=== PATIENT | male | born 1945 | race Caucasian/White ===

== ENCOUNTER 2016-10-15 14:41 | Inpatient (IN) ==
[2016-10-15] MEDS ORDERED: NITROGLYCERIN SL PRN (14:56)
[2016-10-15] MEDS ORDERED: ASPIRIN PO STA (14:56)
[2016-10-15] MEDS ORDERED: ASPIRIN ONE (15:05)
--- NOTE | 2016-10-15 15:05 | PROVIDER DOCUMENTATION ---
HPI-Chest Pain - General Source: patient - History of Present Illness-CP Location: reports: other (jaw tight) Chest Pain Radiation: reports: jaw Quality of Pain: reports: aching Severity in ED: mild Onset/Duration: 1 hour ago Timing: still present Context/Activities at Onset: reports: none, rest Modifying Factors: improves with: nothing Associated Symptoms: denies: back pain, diaphoresis, fatigue, fever/chills, headache, nausea Aspirin Treatment Today: 325 mg x 1 Prior Chest Pain/Cardiac Workup: reports: other (cabg) Similar Symptoms Previously?: Yes Recently Seen Here or By Another Healthcare Provider: No <Derrick Mai - Last Filed: 10/15/16 18:10> <Bre Lopez - Last Filed: 10/15/16 18:23> - General Chief Complaint: Palpitations Stated Complaint: HEART RACING Time Seen by Provider: 10/15/16 14:55 Allergies/Adverse Reactions: Patient Allergies Allergy/AdvReac Type Severity Reaction Status Date / Time peanut Allergy ANAPHYLAXIS Verified 10/15/16 15:01 Home Medications: Allopurinol 300 mg PO DAILY 10/15/16 Amlodipine Besylate [Norvasc] 25 mg PO DAILY 10/15/16 Aspirin 81 mg PO DAILY 10/15/16 Escitalopram [Lexapro] 10 mg PO DAILY 10/15/16 Metoprolol Succinate E.r. [Toprol Xl] 10 mg PO DAILY 10/15/16 Vitamin B Complex 1 each PO DAILY 10/15/16 - History of Present Illness-CP Nature of Presenting Problem: 70 yo WM presents with 45 minutes of palpitations with jaw pain. Came in in SVT at 160 and this spontaneously resolved when I was examining him. He has had this several times before but it usually resolves in minutes. Recently ill with diarrhea and vomiting. (Derrick Mai) Review of Systems - Adult - REVIEW OF SYSTEMS - ADULT Constitutional: reports: no symptoms reported Eyes: reports: no symptoms reported Ears, Nose, Mouth & Throat: reports: no symptoms reported Cardiovascular: reports: see HPI, palpitations Respiratory: reports: see HPI Gastrointestinal: reports: no symptoms reported, see HPI Genitourinary: reports: no symptoms reported Musculoskeletal: reports: no symptoms reported Integumentary: reports: no symptoms reported Neurological: reports: no symptoms reported Psychiatric: reports: no symptoms reported Endocrine: reports: no symptoms reported Hematologic/Lymphatic: reports: no symptoms reported Allergic/Immunologic: reports: no symptoms reported All Other Systems: Reviewed and Negative <Derrick Mai - Last Filed: 10/15/16 18:10> Past History - Adult - PAST MEDICAL HISTORY-ADULT Review of Records: reports: Old Records Reviewed, Nursing Assessment Review, Medications Reviewed, Social history reviewed & non-contributory. Cardiovascular: reports: cardiac disease, CAD, palpitations Respiratory: reports: denies history Gastrointestinal: reports: denies history Musculoskeletal: reports: denies history Neurological: reports: denies history Psychiatric: reports: denies history <Derrick Mai - Last Filed: 10/15/16 18:10> Physical Exam-General - PHYSICAL EXAM-ADULT Initial Vital Signs Reviewed: Yes - CONSTITUTIONAL General Appearance: appears well, alert - EYES Eyes: PERRL/EOMI - HEAD, EARS, NOSE, MOUTH & THROAT HENMT: normocephalic/atraumatic, moist mucous membranes - NECK Neck: non-tender - RESPIRATORY Respiratory: chest non-tender, lungs clear, normal breath sounds, no pleuratic chest pain, no respiratory distress, no accessory muscle use - CARDIOVASCULAR Cardiovascular: normal peripheral pulses, regular rate, rhythm, no edema, other (svt resolved during exam) - GASTROINTESTINAL (ABDOMEN) Abdominal Exam: non tender, soft - MUSCULOSKELETAL Extremity: no pedal edema, no calf tenderness - SKIN Integumentary: normal color, normal turgor - NEUROLOGIC Neurologic: grossly normal, no motor/sensory deficits - PSYCHIATRIC Psych/Mental Status: normal mood/affect, normal thought content, normal thought process <Derrick Mai - Last Filed: 10/15/16 18:10> Progress - CARDIAC RHYTHM EMS EKG Rhythm Strip Interpretation: Initial EKG was SVT, after conversion sinus with ST depression, last EKG - CONSULTS/PCP/HOSPITALIST Notification #1 *Consult/PCP/Hospitalist*: Aydee Time Discussed: 18:10 Reason/Comments: admission for positive enzymes, wanted cardiology approval first Consult Disposition: other #2 Consult: javed barclay Time Discussed: 18:17 Consult Disposition: Admit <Derrick Mai - Last Filed: 10/15/16 18:10> - EKG 1 Time of EKG reading by physician:: 18:22 EKG Read and Signed by:: Osmin Luna Rate: 79 Rhythm: NSR Traer: normal QRS: normal NE Interval: normal <Bre Lopez - Last Filed: 10/15/16 18:23> - PLAN OF CARE/RESULTS Progress/Plan/Lab Results: Vital Signs Pulse Resp BP Pulse Ox 10/15/16 14:47 82 18 127/68 98 peanut Allergy (Verified 10/15/16 15:01) ANAPHYLAXIS Allopurinol 300 mg PO DAILY 10/15/16 Amlodipine Besylate [Norvasc] 25 mg PO DAILY 10/15/16 Aspirin 81 mg PO DAILY 10/15/16 Escitalopram [Lexapro] 10 mg PO DAILY 10/15/16 Metoprolol Succinate E.r. [Toprol Xl] 10 mg PO DAILY 10/15/16 Vitamin B Complex 1 each PO DAILY 10/15/16 Laboratory 10/15/16 10/15/16 10/15/16 16:57 16:57 15:13 WBC RBC Hgb Hct MCV MCH MCHC RDW Std Deviation Plt Count MPV Neut % (Auto) Lymph % (Auto) [place] % (Auto) Eos % (Auto) Baso % (Auto) Neut # (Auto) Lymph # (Auto) [place] # (Auto) Eos # (Auto) Baso # (Auto) PT INR PTT (Actin FS) D-Dimer Sodium Potassium Chloride Carbon Dioxide Anion Gap BUN Creatinine Estimated GFR/1.73 m2 BUN/Creatinine Ratio Glucose Calculated Osmolality Calcium Magnesium Total Bilirubin AST ALT Alkaline Phosphatase Creatine Kinase 267 H Creatine Kinase Index 5.3 H CK-MB (CK-2) 14.02 H D Troponin T 0.247 H D < 0.010 Ppw-A-Rgizxnrsetd Pept Total Protein Albumin Globulin Albumin/Globulin Ratio 10/15/16 10/15/16 10/15/16 15:13 15:13 15:13 WBC RBC Hgb Hct MCV MCH MCHC RDW Std Deviation Plt Count MPV Neut % (Auto) Lymph % (Auto) [place] % (Auto) Eos % (Auto) Baso % (Auto) Neut # (Auto) Lymph # (Auto) [place] # (Auto) Eos # (Auto) Baso # (Auto) PT 11.4 INR 1.07 PTT (Actin FS) 23.3 D-Dimer 0.43 Sodium Potassium Chloride Carbon Dioxide Anion Gap BUN Creatinine Estimated GFR/1.73 m2 BUN/Creatinine Ratio Glucose Calculated Osmolality Calcium Magnesium Total Bilirubin AST ALT Alkaline Phosphatase Creatine Kinase Creatine Kinase Index CK-MB (CK-2) Troponin T Ias-K-Nnllozbzntb Pept 104 Total Protein Albumin Globulin Albumin/Globulin Ratio 10/15/16 10/15/16 15:13 15:13 WBC 7.70 RBC 4.54 L Hgb 15.2 Hct 42.9 MCV 94.5 MCH 33.5 H MCHC 35.4 RDW Std Deviation 11.5 Plt Count 116 L MPV 9.6 Neut % (Auto) 55.5 Lymph % (Auto) 26.0 Da[place]hin % (Auto) 13.1 H Eos % (Auto) 5.1 Baso % (Auto) 0.3 Neut # (Auto) 4.28 Lymph # (Auto) 2.00 [place]hin # (Auto) 1.01 H Eos # (Auto) 0.39 Baso # (Auto) 0.02 PT INR PTT (Actin FS) D-Dimer Sodium 139 Potassium 3.7 Chloride 99 Carbon Dioxide 19 L Anion Gap 21 BUN 16 Creatinine 1.1 Estimated GFR/1.73 m2 > 60 BUN/Creatinine Ratio 15 Glucose 126 H Calculated Osmolality 280 Calcium 8.7 L Magnesium 1.5 Total Bilirubin 0.67 AST 186 H ALT 116 H Alkaline Phosphatase 76 Creatine Kinase 233 H Creatine Kinase Index 2.0 CK-MB (CK-2) 4.58 Troponin T Ied-X-Kwmdljrhsum Pept Total Protein 6.6 Albumin 3.9 Globulin 2.7 Albumin/Globulin Ratio 1.4 (Derrick Mai) Departure - Departure Time of Disposition Order: 18:17 Certified Medical Emergency: Emergent <Derrick Mai - Last Filed: 10/15/16 18:10> <Bre Lopez - Last Filed: 10/15/16 18:23> - Departure DIAGNOSIS: PSVT (paroxysmal supraventricular tachycardia), Elevated troponin Disposition: ADMITTED INPATIENT 09 Condition: Stable Referrals: Garret Culver MD [Primary Care Provider] - Physician Attestation
--- NOTE | 2016-10-15 15:30 | ED EKG INTERP ---
EKG Interpretation - EKG Time of EKG reading by physician:: 14:48 EKG Read and Signed by:: Derrick Mai EKG Interpretation (*Must complete 3 of following elements*): Abnormal Rate: 182 (left anterior fascicular block; anteroseptal infarct; marked ST abnormality , possible inferolateral subendorcardial injury) Rhythm: supraventricular tachycardia - EKG # 2 Time of EKG reading by physician:: 14:55 EKG Read and Signed by:: Derrick Mai EKG Interpretation (*Must complete 3 of following elements*): Abnormal Rate: 75 (possible left atrial enlargement; left axis deviation; anteroseptal infarct; marked ST abnormality, possible lateral subendocardial injury) Rhythm: sinus rhythm with 1st degree AV block Attestation - Scribe Verification/Attestation Scribe:: Ayleen Garcia Acting as Scribe for:: Derrick Mai Scribe documention review:: This chart was documented by a scribe and accurately reflects the service the provider performed and the decisions made by the provider.
[2016-10-15 15:31] LABS: MANUAL DIFF NEEDED? NO
[2016-10-15 15:36] LABS: BASO% 0.3 % (0.0-0.8); EOS# 0.39 X1000 (0.0-0.7); EOS% 5.1 % (0.0-10.0); HEMATOCRIT 42.9 % (42.0-52.0); HEMOGLOBIN 15.2 g/dL (14.0-18.0); MCH 33.5 PG (27-31); MCHC 35.4 g/dL (33-37); MCV 94.5 FL (81-99); MONO# 1.01 X1000 (0.11-0.59); MONO% 13.1 % (1.7-9.3); MPV 9.6 FL (7.4-10.4); NEUT% 55.5 % (42.2-75.2); PLT 116 X1000 (130-400); RBC 4.54 XMIL (4.7-6.1)
[2016-10-15 15:49] LABS: INR 1.07; PROTIME 11.4 Seconds (9.2-11.7); PTT 23.3 Seconds (22.0-36.0)
[2016-10-15 15:56] LABS: AGAP 21; ALBUMIN 3.9 g/dL (3.5-5.0); ALKALINE PHOSPHATASE 76 U/L (32-122); BUN 16 mg/dL (8-22); CALCIUM 8.7 mg/dL (8.8-10.2); CHLORIDE 99 mmol/L (98-107); CK PROFILE 233 U/L (24-204); COSMO 280; GOT 186 U/L (10-34); GPT 116 U/L (10-44); MAGNESIUM 1.5 mg/dL (1.5-2.7); POTASSIUM 3.7 mmol/L (3.5-5.1); SODIUM 139 mmol/L (136-145); TCO2 19 mmol/L (25-35); TOTAL BILIRUBIN 0.67 mg/dL (0.20-1.00); TOTAL PROTEIN 6.6 g/dL (6.3-8.3)
[2016-10-15 16:13] LABS: CK-MB 4.58 ng/mL (0.0-5.0)
[2016-10-15] MEDS: NS 1,000 ML IV SCH ×2 (16:15→19:40)
[2016-10-15] MEDS ORDERED: NS 1,000 ML IV SCH (16:15)
[2016-10-15 17:47] LABS: CK INDEX 5.3 (0.0-2.5); CK-MB 14.02 ng/mL (0.0-5.0)
[2016-10-15] MEDS ORDERED: HEPARIN IV ONE (18:02)
[2016-10-15] MEDS ORDERED: ASPIRIN PO ONE (18:02)
[2016-10-15] MEDS ORDERED: LOVENOX SUBQ ONE (19:32)
[2016-10-15] MEDS ORDERED: ZOFRAN IV PRN (20:15)
[2016-10-15] MEDS ORDERED: NORCO-7.5 PO PRN (20:15)
[2016-10-15 21:18] LABS: HEMOGLOBIN A1C 5.5 % (4.8-6.0)
--- NOTE | 2016-10-15 21:34 | HISTORY AND PHYSICAL ---
CHIEF COMPLAINT: Palpitations. HISTORY OF PRESENT ILLNESS: Mr. Parish Mathew is a 70 years old male with a past medical history of hypertension, coronary artery disease, coronary artery disease status post CABG 2005 and gout who presented to the emergency department complaining of palpitation, the patient states that this palpitation started in the afternoon and lasted more than 25 minutes. He also states that he has been having this kind of palpitation on and off but they do not last that long, they last about 5-10 minutes. At the moment of the palpitations he did not have nausea, vomiting, chest pain, shortness of breath, dizziness. He did not complain of any symptoms. Apparently in the emergency department he has had SVT at 160 but this spontaneously resolved. At the moment of my physical exam he was a normal sinus rhythm. The emergency department called cardiology and they decided to hospitalize the patient for further treatment. REVIEW OF SYSTEMS: Fourteen points of review of systems were reviewed, all negative except as per as per HPI. PAST MEDICAL HISTORY: Hypertension, coronary artery disease status post CABG in 2005 and gout. PAST SURGICAL HISTORY: CABG in 2005, right heel surgery, bilateral knee and right shoulder arthroscopy and tonsillectomy. FAMILY HISTORY: Father with hypertension and CHF, brother with diabetes and his mom is healthy and alive, she is 96 years. SOCIAL HISTORY: He used to smoke but he stopped smoking in 1981. He is an occasional drinker. No drugs. He is . ALLERGIES: PEANUTS AND PEANUT PRODUCTS. BLOOD TRANSFUSIONS: None. PHYSICAL EXAM: VITAL SIGNS: Pulse 82, respiratory rate 18, blood pressure 127/68, O2 saturation 98 on room air. HEENT: Head normocephalic. No trauma. PERRLA. NECK: Supple. No JVD. No masses. Central trachea. CHEST: Clear to auscultation. No wheezing. No rales. ABDOMEN: Soft, nontender, nondistended. No hepatosplenomegaly. EXTREMITIES: No edema. No clubbing. No cyanosis. NEUROLOGICAL EXAMINATION: Patient is alert and oriented x3. No focal neurological deficits. LABORATORY: Sodium 139, potassium 3.7, chloride 99, bicarbonate 19, BUN 16, creatinine 1.1, glucose 126. Calcium 8.7, AST 186, ALT 116, CK 233, CK-MB 4.5 and one almost 2 hours later 14. Troponin less than 0.01 and close to 2 hours later 0.24. Albumin 3.9. ASSESSMENT AND PLAN: 1.SVT, now on sinus rhythm, will continue to monitor with telemetry in the [facility], Cardiology Department been consulted. 2. Increased troponins. Will monitor. We are going to follow up troponins every 6 hours, since the CK-MB and troponins are mildly elevated we are going to give a dose of Lovenox to this patient. We need to rule out non-ST elevation myocardial infarction. 3. Hypertension stable. I will continue with his home medications. 4. History of coronary artery disease status post coronary artery bypass graft, that was back in 2005, he is not complaining of chest pain but he was complaining of palpitation and neck discomfort. Will monitor. 5. Gout. We will continue with home medications. At this moment this patient is stable. He is not complaining of chest pain, shortness of breath, palpitation. He is going to receive aspirin and 1 dose of Lovenox. We will monitor the troponins and CK-MB, cardiology Department has been consulted. Also we will ask for an echocardiogram, lab work including CBC, CMP and thyroid function, hemoglobin A1c. He will be hospitalized in [facility] with monitoring. DEN
[2016-10-15] MEDS ORDERED: RESTORIL PO ONE (22:10)
[2016-10-15] MEDS: 1/2 NS 1,000 ML IV SCH (22:48)
--- NOTE | 2016-10-15 23:11 | Diag Imaging Result Document ---
PROCEDURE NAME: CHEST-2 VIEWS - 10/15/2016 PA AND LATERAL RADIOGRAPH OF THE CHEST: COMPARISON: None available. FINDINGS: There is a calcified granuloma at the peripheral mid lung zone on the right. Lungs are clear otherwise. There is no definite pleural fluid collection. CABG changes are noted. Cardiac silhouette and central vasculature are unremarkable, otherwise. IMPRESSION: No definite acute pathology.
[2016-10-16] MEDS ORDERED: PRILOSEC PO SCH (07:00)
[2016-10-16 07:41] LABS: MANUAL DIFF NEEDED? NO
[2016-10-16 07:42] LABS: BASO% 0.5 % (0.0-0.8); EOS# 0.41 X1000 (0.0-0.7); EOS% 6.6 % (0.0-10.0); HEMATOCRIT 40.5 % (42.0-52.0); HEMOGLOBIN 14.3 g/dL (14.0-18.0); IMM GRAN# 0.02 X1000 (0.0-0.04); IMM GRAN% 0.3 % (0.0-0.5); LYMPH# 1.62 X1000 (1.2-3.4); LYMPH% 26.2 % (20.5-51.1); MCH 33.3 PG (27-31); MCHC 35.3 g/dL (33-37); MCV 94.4 FL (81-99); MONO# 0.95 X1000 (0.11-0.59); MONO% 15.3 % (1.7-9.3); MPV 9.5 FL (7.4-10.4); NEUT% 51.1 % (42.2-75.2); PLT 112 X1000 (130-400); RBC 4.29 XMIL (4.7-6.1)
[2016-10-16 07:53] LABS: INR 1.12; PROTIME 11.9 Seconds (9.2-11.7); PTT 28.3 Seconds (22.0-36.0)
[2016-10-16 07:59] LABS: AGAP 11; ALBUMIN 3.4 g/dL (3.5-5.0); ALKALINE PHOSPHATASE 55 U/L (32-122); BUN 14 mg/dL (8-22); CALCIUM 8.2 mg/dL (8.8-10.2); CHLORIDE 101 mmol/L (98-107); COSMO 275; GOT 116 U/L (10-34); GPT 85 U/L (10-44); MAGNESIUM 1.7 mg/dL (1.5-2.7); POTASSIUM 4.3 mmol/L (3.5-5.1); SODIUM 137 mmol/L (136-145); TCO2 25 mmol/L (25-35); TOTAL BILIRUBIN 0.78 mg/dL (0.20-1.00); TOTAL PROTEIN 5.7 g/dL (6.3-8.3)
[2016-10-16] MEDS ORDERED: LOVENOX SUBQ SCH (09:00)
[2016-10-16] MEDS ORDERED: TOPROL XL PO SCH ×2 (09:00)
[2016-10-16] MEDS ORDERED: ZYLOPRIM PO SCH (09:00)
[2016-10-16] MEDS ORDERED: VICON-C PO SCH (09:00)
[2016-10-16] MEDS ORDERED: ASPIRIN PO SCH (09:00)
[2016-10-16] MEDS ORDERED: NORVASC PO SCH ×2 (09:00)
[2016-10-16] MEDS ORDERED: LEXAPRO PO SCH (09:00)
--- NOTE | 2016-10-16 10:33 | Diag Imaging Result Document ---
PROCEDURE NAME: CHEST-PORTABLE - 10/16/2016 SINGLE FRONTAL RADIOGRAPH OF THE CHEST: COMPARISON: 10/15/2016. FINDINGS: The lungs remain grossly clear. There are no new consolidations. Cardiac silhouette is stable. IMPRESSION: Stable chest.
[2016-10-16] MEDS ORDERED: LIPITOR PO SCH (11:30)
[2016-10-16 12:21] VITALS: BP 175/78
[2016-10-16] MEDS: 1/2 NS 1,000 ML IV SCH (13:40)
--- NOTE | 2016-10-16 16:39 | CONSULTATION ---
DATE OF CONSULTATION: 10/16/2016 INDICATION FOR THE CONSULTATION: SVT, non-ST elevation LA. HISTORY OF PRESENT ILLNESS: Mr. Mathew is a 70-year-old white male with a past history of hypertension, coronary disease and hyperlipidemia. He normally follows with [facility] and Dr. Hagan. However, he has not seen Dr. Hagan in roughly 7-8 years. He presented yesterday for complaints of palpitations as well as pain radiating up into his jaw. This began while at rest. It persisted for around 25-30 minutes at home before he ultimately presented to the ER where he was found to be in a narrow complex SVT that appeared to be reentrant in etiology. He spontaneously converted. He did have some ST-segment depression. During the remainder the stay he was found to have elevated cardiac enzymes. He did not have any symptoms that he is aware of prior to his bypass but did note that after his bypass was performed he had resolution of significant fatigue and dyspnea. He has had periodic SVT in the interim years that has always terminated on its own. Those episodes would last for around 5-8 minutes. He had never been diagnosed with it but it sounded like he had intermittent palpitations that was consistent with SVT. Over the last 3 days he has had recurrent episodes of this. PAST MEDICAL HISTORY: Significant for. 1. Coronary disease and coronary bypass grafting in 2005. No cardiology followup since 2008. 2. Hypertension. 3. Hyperlipidemia. 4. Gout. SOCIAL HISTORY: Previous smoking but quit in 1981. He is . His is present with him. He uses occasional rare alcohol. No illicit drugs. FAMILY HISTORY: Significant for hypertension, CHF, brother with diabetes. Mom is healthy and alive at 96. REVIEW OF SYSTEMS: A 10-system review of systems is negative except for those things mentioned in HPI. PHYSICAL EXAMINATION: Vital signs: The patient is afebrile. His heart rates are in the 60s to 80s during the course of this visit. His blood pressure is 140/84. General: He is in no acute distress. HEENT: Oropharynx is moist. Normal dentition. His eye examination shows pink conjunctivae. White sclerae. Neck: Examination shows no obvious thyromegaly or thyroid tenderness. Cardiovascular: He sounds to be in a regular rate and rhythm. He has no obvious murmurs. He has no S3 present. He has no lower extremity edema. Chest: Exam is clear bilaterally. He has no increased work of breathing. Abdomen: Soft, nontender, nondistended. He has no obvious organomegaly. Skin Exam: Warm and dry throughout without any rashes. Neurological: He is moving all extremities well. Cranial nerves 2-12 are intact without any sensation deficits. PERTINENT DATA: His EKG on presentation showed a narrow complex supraventricular tachycardia, rate of 182 beats per minute. He did have significant ST depression in the lateral limb and chest leads. Subsequent EKG at 1455 yesterday continued to show some ST-segment depression in the high lateral leads as well as the lateral chest leads. He does have Q-waves in V1 through V3. Next EKG at 1652 yesterday shows resolution of the ST segments in the lateral chest leads with some minor persistence in the high lateral leads, continued Q-waves in V1 through V3 with sinus rhythm, first- degree AV block and final EKG this morning at 9:[address] depression in the lateral chest leads with very minimal in the high lateral leads, sinus rhythm, first-degree AV block. Some Q-waves in V1 through V2. His chest x-ray shows no evidence of consolidations or infiltrates. His white count is 6.1, his hematocrit is 40.5, his platelet count is 112,000. His INR is 1.1. His sodium is 137, potassium 4.3, his BUN is 14, creatinine 0.9. His AST and ALT were minimally elevated at 116 and 85 respectively. His cardiac enzymes are negative times multiple sets. Initial was negative, subsequent was 0.247, it has peaked as high as 0.360. His albumin level is 3.4, his LDL is 174 with cholesterol 215 and HDL of 37, his TSH and free T4 were normal. ASSESSMENT: 1. Likely reentrant supraventricular tachycardia. 2. Non ST-elevation myocardial infarction. 3. Hyperlipidemia. PLAN: Patient would prefer to have cardiac catheterization performed at [facility] secondary to his history there. I would agree with this at this time. We will continue him on his current medications as he seems well controlled. His sinus rhythm is such that I do not think I can titrate his beta-chaya much more. He is currently on Toprol 25 mg daily. He continues on aspirin. He is on a prophylactic dose Lovenox as well as amlodipine. I have added in a statin to his regimen. We will call the transfer center over at [facility] to get the patient transferred over and we will proceed from there. If he has no flow-limiting lesions on his cardiac catheterization then he may benefit from a EP consultation and potential SVT ablation considering his recurrent episodes of this as well as an episode resulting in enzyme elevation and ER visit.
--- NOTE | 2016-10-16 17:22 | ECHO REPORT ---
ORDER DATE: 10/16/2016 INDICATION: SVT. Non-ST elevation myocardial infarction. FINDINGS: 1. Right atrium is normal in size at 3.5 cm. 2. Mild tricuspid regurgitation. RV systolic pressure of 37. 3. Right ventricle does appear somewhat dilated with normal RV systolic function. 4. Mild pulmonic insufficiency. 5. Mild left atrial enlargement at 4.8 cm. 6. No mitral valve prolapse. Mild to moderate mitral regurgitation. 7. Normal LV size, end-diastolic dimension of 5.1. Mild to moderate left ventricular hypertrophy with a posterior and interventricular septal thickness 1.4 cm each. Normal LV systolic function. Estimated EF is 60% with normal wall motion. 8. Aortic valve opens well and appears trileaflet. No evidence of stenosis or insufficiency. 9. Aorta appears somewhat dilated at the root with a dimension of 3.9 cm. 10. No pericardial effusion seen.
--- NOTE | 2016-10-16 23:56 | DISCHARGE SUMMARY ---
ADMISSION DATE: 10/15/2016 DISCHARGE DATE: DISCHARGE DIAGNOSES: 1. Likely reentrant supraventricular tachycardia. 2. Non ST elevation myocardial infarction. 3. Hypertension. 4. History of coronary artery disease status post coronary artery bypass graft in 2005. 5. Hyperlipidemia. 6. Gout. CONSULT: Cardiology Department Dr. Cannon. HOSPITAL COURSE: Mr. Mathew is a 70 years old male with a past medical history of hypertension, coronary artery disease status post CABG in 2005 and gout, hyperlipidemia who presented to the emergency department complaining of palpitation. The patient state that these palpitation started in the afternoon and lasted more than 25 minutes. He also states that he has been having this kind of palpitation on and off but they do not last that long. They usually last about 5-10 minutes. At the moment of the palpitation he did not have nausea, vomiting, shortness of breath, chest pain or dizziness, but he complained about some neck pain. Apparently in the emergency department. He had SVT at 160 but this spontaneously resolved. At the moment of my physical exam he was in normal sinus rhythm. In the emergency department this patient was found to have increase of troponins, Cardiology Department was consulted and Dr. Cannon evaluated this patient. Likely this patient has a non-ST elevation myocardial infarction and also a SVT. After discussion with the patient this patient decided to go to [facility] and the reason is that he has been follow there. At this moment we will continue with the same medications. He is in normal sinus rhythm. He is not complaining of any chest pain or symptoms at this moment but probably he will need to go to a cardiac catheterization to see if he has any obstructions. If this patient does not have any flow-limiting lesions probably he will need to be evaluated by a EP doctor for potential ablation of his SVT. At the moment of discharge this patient was in stable medical condition tolerating p.o. without symptoms. PHYSICAL EXAM: Vital Signs: Temperature 98.2 degrees, pulse 64, respiratory rate 18, blood pressure 175/78, O2 saturation 98 on room air. HEENT: Head normocephalic. No trauma. PERRLA. Neck: Supple. No JVD. No masses. Central trachea. Chest: Clear to auscultation. No wheezing. No rales. Cardiovascular: RRR. No murmurs. No gallops. No rubs. Abdomen: Soft, nontender, nondistended. No hepatosplenomegaly. Extremities: No edema. No clubbing. No cyanosis. Neurological: The patient is alert and oriented x3. No focal neurological deficits. LABORATORY: WBC 6.1, hemoglobin 14.3, hematocrit 40.5, platelets 112,000. Sodium 137, potassium 4.3, chloride 101, bicarbonate 25, BUN 14, creatinine 0.9, glucose 107, calcium 8.2, troponin 0.253, albumin 3.4. DISCHARGE MEDICATIONS: Patient will continue with his medications. Allopurinol 300 mg p.o. daily, aspirin 81 mg p.o. daily, atorvastatin 80 mg p.o. daily, escitalopram 10 mg p.o. p.r.n., Toprol-XL 25 mg p.o. daily, amlodipine 10 mg p.o. at bedtime. FOLLOWUP: This patient will be transferred to [facility], they will set a followup for this patient.
--- NOTE | 2016-10-17 05:35 | EKG Report ---
Test Performed on : 10/16/2016 09:03:34 AM Test Reason : chest pain Blood Pressure : / mmHG Vent. Rate : 065 BPM Atrial Rate : 065 BPM P-R Int : 234 ms QRS Dur : 094 ms QT Int : 448 ms P-R-T Axes : 005 -40 106 degrees QTc Int : 465 ms Sinus rhythm. with 1st degree AV block. Left axis deviation - LAFB suggested as cause for leftward axis Septal infarct (cited on or before 15-OCT-2016) ST & T wave abnormality, consider anterolateral ischemia Abnormal ECG When compared with ECG of 15-OCT-2016 16:52, (Unconfirmed) PA interval has increased T wave inversion more evident in Anterior leads ST more depressed in anterior/precordial leads V2-V6 Confirmed by David Cannon DO ([id number]) on 10/18/2016 8:00:09 AM
--- NOTE | 2016-10-17 06:22 | EKG Report ---
Test Performed on : 10/15/2016 2:48:26 PM Test Reason : Done in ED/Order cancelled in [employer] Blood Pressure : / mmHG Vent. Rate : 182 BPM Atrial Rate : 170 BPM P-R Int : 000 ms QRS Dur : 098 ms QT Int : 254 ms P-R-T Axes : 000 -52 129 degrees QTc Int : 441 ms Supraventricular tachycardia. Left anterior fascicular block Anteroseptal infarct , age undetermined Marked ST abnormality, possible inferolateral subendocardial injury Abnormal ECG No previous ECGs available Unconfirmed Result
--- NOTE | 2016-10-17 06:22 | EKG Report ---
Test Performed on : 10/15/2016 2:55:03 PM Test Reason : Done in ED/Order Cancelled in [employer] Blood Pressure : / mmHG Vent. Rate : 075 BPM Atrial Rate : 075 BPM P-R Int : 212 ms QRS Dur : 098 ms QT Int : 404 ms P-R-T Axes : 022 -40 113 degrees QTc Int : 451 ms Sinus rhythm. with 1st degree AV block. Possible Left atrial enlargement Left axis deviation Anteroseptal infarct (cited on or before 15-OCT-2016) Marked ST abnormality, possible lateral subendocardial injury Abnormal ECG When compared with ECG of 15-OCT-2016 14:48, (Unconfirmed) OK interval has increased Vent. rate has decreased BY 107 BPM Serial changes of evolving Anteroseptal infarct present Unconfirmed Result
== END 2016-10-16 14:46 | disposition short-term general hospital (02) | DRG 281 ==
LOC: ED 14:41 → EDIPHOLD 21:33
PROVIDERS: ATTEND Internal Medicine
DX: I21.4 Non-ST elevation (NSTEMI) myocardial infarction (principal); I47.1 Supraventricular tachycardia; Z95.1 Presence of aortocoronary bypass graft; I10 Essential (primary) hypertension; I25.10 Atherosclerotic heart disease of native coronary artery without angina pectoris; E78.5 Hyperlipidemia, unspecified; M10.9 Gout, unspecified; Z82.49 Family history of ischemic heart disease and other diseases of the circulatory system; Z83.3 Family history of diabetes mellitus; Z87.891 Personal history of nicotine dependence; Z79.82 Long term (current) use of aspirin; Z79.899 Other long term (current) drug therapy
CPT/HCPCS: 71010; 71020; 80053; 80061; 82550; 82553; 83036; 83721; 83735; 83880; 84439; 84443; 84484; 85025; 85379; 85610; 85730; 93005; 93306; 96372; 96374; J1644; J1650; J7030